=== PATIENT | male | born 1975 | race Caucasian/White ===

== ENCOUNTER 2022-10-06 03:21 | Emergency (ER) | payer OTHER ==
[~2022-10-06] VITALS: Ht 175.3 cm; Wt 111.1 kg
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
--- NOTE | 2022-10-06 03:26 | NUR ---
DR RYAN GARVIN AT PT'S BEDSIDE FOR EVAL
--- NOTE | 2022-10-06 03:50 | NUR ---
PATIENT WENT TO CT VIA [facility]
--- NOTE | 2022-10-06 03:50 | NUR ---
PT TAKEN TO CT VIA [facility]
[2022-10-06] MEDS ORDERED: TDAP [DIPH/PERTUSSIS/TET] 0.5 ML VIAL IM ONE (04:00)
[2022-10-06] MEDS ORDERED: LIDOCAINE 1% INJ 50 ML MDV IJ ONE (04:00)
[2022-10-06] MEDS ORDERED: HYDROCODONE/APAP 10/325MG TABLET PO ONE (04:00)
[2022-10-06] MEDS ORDERED: HYDROCODONE/APAP 10/325MG TABLET ONE (04:18)
--- NOTE | 2022-10-06 04:18 | NUR ---
PT RETURNED TO ER BED [address]
--- NOTE | 2022-10-06 04:24 | NUR ---
NORCO 10/325 MG GIVEN ORDERED FOR PAIN
[2022-10-06] MEDS ORDERED: LIDOCAINE 1%-EPI 1:100,000 20 ML VIAL ONE (04:51)
--- NOTE | 2022-10-06 05:00 | NUR ---
DR DAVIS ADMINISTERED LIDOCAINE AND START SUTURING L KNEE LACERATION. PATIENT IS AWAKE TALKING TO THE CLOTH PRINTER AT BEDSIDE.
[2022-10-06] MEDS ORDERED: IOHEXOL-350 100 ML VIAL IV ONE (05:53)
[2022-10-06] MEDS ORDERED: CT SWABBABLE VALVE TRANS SET 1 EA INFUS.SET MC ONE (05:54)
[2022-10-06] MEDS ORDERED: IV NS 0.9% 250 ML IV ONE (05:54)
--- NOTE | 2022-10-06 06:04 | NUR ---
LFA #18G S/L BLOOD COLLECTED AND SENT TO LAB
--- NOTE | 2022-10-06 06:04 | NUR ---
INSERTED IV ACCESS AR L FOREARM GAUGE 18, BLOOD DRAWN AND SENT TO LAB
--- NOTE | 2022-10-06 06:19 | NUR ---
PT TAKEN TO CT VIA [facility]
[2022-10-06] MEDS ORDERED: CLIN300C12 PO (06:47)
[2022-10-06] MEDS ORDERED: IBUP-1953 PO (06:47)
--- NOTE | 2022-10-06 06:53 | NUR ---
BACK FROM CT
[2022-10-06 06:55] LABS: CALCIUM, SERUM 9.1 mg/dL (8.5-10.1); CREATININE 0.9 mg/dL (0.6-1.3); POTASSIUM 3.3 mmol/L (3.5-5.1)
--- NOTE | 2022-10-06 07:59 | NUR ---
CALLED [facility] [phone] [facility] RADIOLOGIST WILL CALL US BACK ABOUT THE STUDY.
--- NOTE | 2022-10-06 08:08 | NUR ---
DR. WALKER RADIOLOGIST SPEAKING WITH DR. GUPTA.
[2022-10-06 09:31] VITALS: BP 158/85
--- NOTE | 2022-10-06 09:31 | NUR ---
IV removed. Catheter intact and site benign. Pressure and 4x4 applied to site. No bleeding noted.Patient discharged to home in stable condition. Written and verbal after care instructions given. Patient verbalizes understanding of instruction.
== END 2022-10-06 09:32 | disposition home or self-care (01) ==
LOC: ER 03:30
DX: S02.2XXA Fracture of nasal bones, initial encounter for closed fracture (principal); S22.20XA Unspecified fracture of sternum, initial encounter for closed fracture; S81.012A Laceration without foreign body, left knee, initial encounter; S00.01XA Abrasion of scalp, initial encounter; V89.2XXA Person injured in unspecified motor-vehicle accident, traffic, initial encounter; Y93.89 Activity, other specified; Y92.411 Interstate highway as the place of occurrence of the external cause; Y99.8 Other external cause status; M54.50 Low back pain, unspecified
CPT/HCPCS: 99285; 72125; 12004; 73560; 71250; 70450; 72131; 72128; 70486; 71275; 74176; 80048; 36415; 84484; 93005; J7050; J3490; Q9967

== ENCOUNTER 2022-10-19 12:06 | Emergency (ER) | payer OTHER ==
[~2022-10-19] VITALS: Ht 175.3 cm; Wt 111.1 kg
[~2022-10-19 12:06] MED LIST: CLIN300C12 PO; IBUP-1953 PO
[2022-10-19 12:10] VITALS: BP 138/82
--- NOTE | 2022-10-19 12:23 | NUR ---
Patient discharged to home in stable condition. Written and verbal after care instructions given. Patient verbalizes understanding of instruction.
== END 2022-10-19 13:16 | disposition home or self-care (01) ==
LOC: ER 12:10
DX: Z48.02 Encounter for removal of sutures (principal); S81.012D Laceration without foreign body, left knee, subsequent encounter; X58.XXXD Exposure to other specified factors, subsequent encounter